=== PATIENT | female | born 1945 | race Caucasian/White ===

== ENCOUNTER 2024-12-18 16:40 | Outpatient (REF) | payer MEDICARE, SELFPAY ==
--- NOTE | ~2024-12-18 | MR_ITS ---
EXAMINATION: MR BRAIN WITHOUT IV CONTRAST HISTORY: cerebral microvascular TECHNIQUE: Sagittal T1, and axial T1, FLAIR, T2, gradient echo, and diffusion weighted MR images of the brain were obtained. COMPARISON: None FINDINGS: There is mild prominence of the ventricular system and cortical sulci, consistent with atrophy. Scattered periventricular and subcortical white matter hyperintensities are noted on the FLAIR and T2-weighted images which are nonspecific, but often seen in the setting of small vessel ischemic disease. There is no mass effect or midline shift. No intra or extra-axial fluid collections are identified. There are no foci of restricted diffusion. Normal vascular flow voids are noted in the basilar and carotid arteries. The visualized paranasal sinuses are clear. There are multiple sebaceous cysts of the scalp. MR/MR head/brain wo con IMPRESSION: Mild cerebral atrophy and findings consistent with small vessel ischemic disease of the white matter as described. Electronically signed by: Avtar Bal MD 12/19/2024 07:37 AM [facility] [place]
== END 2024-12-18 16:41 | disposition home or self-care (01) ==
LOC: HO.MRI 16:40
PROVIDERS: PCP Internal Medicine; Visit Provider Psychiatry & Neurology Neurology
DX: G11.9 Hereditary ataxia, unspecified (principal); I67.9 Cerebrovascular disease, unspecified
CPT/HCPCS: 70551

== ENCOUNTER → 2024-12-18 16:48 | Outpatient (BNV) | payer MEDICARE, SELFPAY | PROVIDERS: PCP Internal Medicine; Visit Provider Radiology Diagnostic Radiology | DX: G31.9 Degenerative disease of nervous system, unspecified (principal); R90.82 White matter disease, unspecified | CPT/HCPCS: 70551 ==